=== PATIENT | female | born 1945 | race Caucasian/White ===

== ENCOUNTER 2017-12-31 13:05 | Inpatient (IN) | payer MEDICARE ==
[~2017-12-31] VITALS: Ht 162.6 cm; Wt 77.2 kg
--- NOTE | 2017-12-31 13:45 | NUR ---
PT TAKEN TO FAMILY ROOM WITH & DAUGHTER FOR ISOLATION UNTIL A ROOM IS AVAILABLE FOR TREATMENT. PT IN STABLE CONDITION.
--- NOTE | 2017-12-31 13:50 | NUR ---
PT GIVEN CASS & BELG[place]
--- NOTE | 2017-12-31 14:30 | NUR ---
PT DENIES N/V/D, DRANK SMALL GINGERALE, ATE CRACKERS. WILL CONTINUE TO MONITOR UNTIL A ROOM IS AVAILABLE FOR TREATMTENT.
--- NOTE | 2017-12-31 15:00 | NUR ---
PT TO ROOM 15 VIA WHEELCHAIR WITH FMAILY AT SIDE. PT DENIES ANY PAIN OR SOB AT THIS TIME. LARGE BLISTER LIKE WOUNDS NOTED TO THE BILATERAL UPPER ABDOMEN ACROSS BILATERAL BREASTS AND IN BETWEEN BREASTS. WOUNDS ARE LEAKING A PALE YELLOW FLUID. PT REMOVED PAPER TOWELS FROM AREA. SOME ARE OPEN AND BLEEDING. PER PT THEY ARE WARTS. PT CHANGED INTO GOWN AND IS AWARE OF PROBABLE PLAN OF CARE AND WAIT TIME. CALL MOTA WITHIN REACH. WILL CONTINUE TO MONITOR.
--- NOTE | 2017-12-31 15:38 | NUR ---
IV ESTABLISHED. LABS COULD NOT BE DRAWN FROM IV SITE. PT RECVING IVF. PT REQUEST WE WAIT UNTIL SHE CAN GET SOME NACL IN HER BEFORE WE TRY TO DRAW BLOOD AGAIN. PLEB//RN AWARE.
--- NOTE | 2017-12-31 16:00 | NUR ---
EYES BRIGHT AND PT TALKATIVE WITH FAMILY. PER PT SHE IS FEELING MUCH BETTER AFTER THE FLUIDS WERE STARTED. PT WOULD LIKE TO FINISH THE L OF NCL BEFORE HAVING BLOOD DRAWN. PT MADE AWARE OF NEED TO START ANTIBIOTICS. PT STATED "I DON'T THINK THAT 1 HOUR WILL MAKE IT ANY WORSE, I WILL JUST WAIT". NOTIFIED.
--- NOTE | 2017-12-31 17:00 | NUR ---
PO FLUIDS PROVIDED PER PT REQUEST. PT RESTING COMFORTABLY IN STRETCHER WITH EYES CLOSED. PT AGREED TO HAVE LUBRICATION TECHNICIAN TO DRAWN LABS. PT DENIES ANY NEEDS AT THIS TIME. WILL CONTINUE TO MONITOR.
--- NOTE | 2017-12-31 17:25 | NUR ---
LAB AT BEDSIDE TO COLLECT LABS AND BLOOD CULTURE.
--- NOTE | 2017-12-31 18:00 | NUR ---
EKG LEADS REMOVED PER PT REQUEST DUE TO IRRITATION OF SKIN. PO FLUIDS PROVIDED AND PT TOLERATING WELL. VSS. WILL CONTINUE TO MONITOR.
[2017-12-31 18:02] LABS: ALKALINE PHOSPHATASE 137 u/l (38-126); ANION GAP 13 (6-22 (CALC)); BUN 18 mg/dL (8-23); BUN/CREATININE RATIO 29 (12-20 (CALC)); CARBON DIOXIDE 21 mmol/l (22-30); CHLORIDE 104 mmol/l (95-108); CREATININE 0.6 mg/dL (0.5-1.0); GFR > 60 ML/MIN (>=60 (CALC)); GFR FOR AFR.AMER. > 60 ML/MIN (>=60 (CALC)); POTASSIUM 4.4 mmol/l (3.5-5.1); SGOT/AST 39 u/l (9-36); SGPT/ALT 41 u/l (11-66); SODIUM 133 mmol/l (137-146); TOTAL PROTEIN 6.1 g/dL (6.3-8.2)
[2017-12-31 18:09] LABS: IMMATURE GRANULOCYTES 0.6 % (0.0-1.0); MEAN CELL VOLUME 77.8 fL CALC (80.0-100.0); MEAN CORPUSCULAR HGB 20.2 pG CALC (26.0-32.0); PLATELET COUNT 450 thou/uL (130-400); RED BLOOD COUNT 1.98 mill/uL (4.20-5.60); RED CELL DISTRI WIDTH 18.6 % (11.5-15.5)
--- NOTE | 2017-12-31 18:30 | NUR ---
IV ANTIBIOTICS AND NORMAL SALINE INFUSING. PT DENIES ANY PAIN AT THIS TIME. MD AT BEDSIDE TO DISCUSS RESULTS AND PLAN OF ADMISSION.
[2017-12-31 18:32] LABS: TSH, 3RD GENERATION 1.92 uIU/mL (0.47 - 4.68)
--- NOTE | 2017-12-31 19:00 | NUR ---
REPORT GIVEN TO DENISSE MELO.
[2017-12-31 19:53] LABS: URINE BILIRUBIN - DIPSTICK NEGATIVE (NEGATIVE); URINE BLOOD DIPSTICK NEGATIVE (NEGATIVE); URINE COLOR YELLOW; URINE GLUCOSE - DIPSTICK NEGATIVE (NEGATIVE); URINE KETONE NEGATIVE (NEGATIVE); URINE LEUK ESTERASE NEGATIVE (NEGATIVE); URINE NITRITE - DIPSTICK NEGATIVE (Negative); URINE PH 5.5 (4.5-8.0); URINE PROTEIN - DIPSTICK NEGATIVE (NEG-TRACE); URINE UROBILINOGEN - DIPSTICK 0.2 E.U./dL (0.2)
[2017-12-31 19:55] LABS: URINE CLARITY CLEAR
[2017-12-31 20:06] LABS: HEMATOCRIT 15.4 % (37.0-47.0); MANUAL DIFFERENTIAL YES
[2017-12-31 20:07] LABS: HYPOCHROMIA MARKED; MICROCYTOSIS FEW
--- NOTE | 2017-12-31 20:31 | NUR ---
LAB CALLED WITH HGB 4/HCT 15.4 @ 2002 REPORT CALLED TO NIR @ 2005. PT TO GO TO 273 BUT SHE STATES IT IS NOT CLEAN AND PIECER UP JUST WENT INTO ROOM. DR PATEL NOTIFIED OF H & H RESULTS @ 2007. PT TO GET 2 UNITS OF PRBC'S/LASIX 20 IVP AFTER 1 ST UNIT/REPEAT HGB AFTER 2ND UNIT. 2009 NIR CALLED TO ADVISE ROOM NOW CLEAN. 2022 LASIX ORDER FAXED TO .
--- NOTE | 2017-12-31 20:45 | NUR ---
TO FLOOR WITHOUT INCIDENT
[2017-12-31 21:00] VITALS: BP 149/74
--- NOTE | 2017-12-31 21:00 | NUR ---
PATIENT ADMITTED FROM ER VIA STRETCHER WITH ER STAFF AND FAMILY IN ATTENDANCE. PATIENT MIN ASSIST FROM STRETCHER TO THE BED. PATIENT IS VERY PALE. PATIENT IS AWAKE ALERT AND ORIENTEDX3. O2 VIA NASAL CANNULA IN PLACE. HEP LOCK TO RIGHT WRIST INTACT AND APPEARS HEALTHY AT THIS TIME. 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 CLEANSED WITH SALINE AND PICTURES WERE TAKEN. LEFT EDWARD AT THIS TIME. PATIENT ORIENTED TO ROOM AND SURROUNDINGS. INSTRUCTED ON USE OF NURSE CALL LIGHT SYSTEM AND THE TV REMOTE. SAFETY PRECAUTIONS REINFORCED. OFFERED SANDWICH BUT DECLINES AT THIS TIME. PROVIDED WITH DRINK AND PUDDING. CALL LIGHT IN REACH. WILL CONT TO MONITOR.
[2017-12-31 21:55] VITALS: BP 137/78
[2017-12-31 22:40] VITALS: BP 137/69
[2018-01-01] VITALS (11 sets, daily range): BP systolic 126–144; BP diastolic 49–74
--- NOTE | 2018-01-01 00:45 | NUR ---
SECOND UNIT OF PRBC'S HUNG ORDERED VIA RIGHT WRIST SITE. SITE APPEARS HEALTHY AT THIS TIME. UNIT#[id number] HUNG. PATIENT UP AND DOWN TO THE BEDSIDE COMMODE AFTER TAKING THE LASIX AFTER THE 1ST UNIT. PATIENT RE-EDUCATED REGUARDING POSSIBLE ADVERSE REACTIONS FROM BLOOD TRANSFUSION. VERBALIZES UNDERSTANDING. MONITORING PATIENT AT BEDSIDE PER BLOOD TRANSFUSION PROTOCOL.
--- NOTE | 2018-01-01 03:24 | NUR ---
SECOND UNIT OF PRBC'S FINISHED WITHOUT ANY ADVERSE REACTION. VS TAKEN AND RECORDED. IV SITE TO RIGHT WRIST REMAINS INTACT AND APPEARS HEALTHY. PATIENT WITH SKIN LESIONS TO LEFT BREAST OPEN TO AIR AT THIS TIME-DRAINING SEROUS FLUID-USING TOWEL TO ABSORB THE DRAINAGE AT THIS TIME. WOUND CULTURE OBTAINED AND SENT TO THE LAB. CONT TO VOID CLEAR YELLOW URINE. PATIENT DRINKING BOOST. SAFETY PRECAUTIONS REINFORCED. CALL LIGHT IN REACH. WILL CONT TO MONITOR.
[2018-01-01 06:12] LABS: HEMATOCRIT 19.3 % (37.0-47.0)
--- NOTE | 2018-01-01 06:16 | NUR ---
RECIEVED CALL FROM CIERRA IN LAB WITH CRITICAL LAB RESULTS. HGB-6.0, HCT-19.3. RESULTS CALLED TO DR. PATEL-LEFT MESSAGE ON ANSWERING MACHINE. WILL AWAIT CALL BACK. PATIENT RESTING IN BED AT THIS TIME WITH NBO COMPLAINTS. CALL LIGHT IN REACH. WILL CONT TO MONITOR.
--- NOTE | 2018-01-01 07:27 | NUR ---
REPORT RECEIVED FROM DENISSE LOYOLA. PT SLEEPING. CALL LIGHT WITHIN REACH.
--- NOTE | 2018-01-01 07:31 | NUR ---
PATIENT RESTING IN BED WITH O2 VIA NASAL CANNUA IN PLACE. CONSENT FOR BLOOD OBTAINED. 1ST UNIT OF PRBC'S HUNG ORDERED. PATIENT HAS BEEN EDUCATED REGUARDING POSSIBLE ADVERSE REACTIONS ASSOCIATED WITH BLOOD TRANSFUSIONS. UNIT# [id number] GEORGE-MONITORING PATIENT AT BEDSIDE PER PROTOCOL.
--- NOTE | 2018-01-01 08:35 | NUR ---
PT SITTING UPRIGHT IN BED. NOT WEARING ANY CLOTHING TO UPPER BODY. VARIOUS LESIONS TO LEFT BREAST AND CHEST NOTED. PT REPORTS LESIONS ARE TOO PAINFUL IF COVERED. NO BLEEDING FROM LESIONS NOTED AT THIS TIME. REPORTING OF CONCERNS ENCOURAGED. PLAN OF CARE DISCUSSED. FALL PRECAUTIONS REINFORCED. CALL LIGHT REVIEWED AND IN REACH.
--- NOTE | 2018-01-01 11:04 | NUR ---
1ST UNIT PRBC'S STARTED AT THIS TIME. DR. PATEL AT BEDSIDE, DISCUSSING PLAN OF CARE. NURSING SCHEDULER AT BEDSIDE TO MONITOR PER PROTOCOL.
--- NOTE | 2018-01-01 11:20 | NUR ---
PT TRANSFERED TO CT BY VP TRAINING CE VIA STRETCHER. PRBC'S INFUSING WITHOUT DOFFICULTY. O2 AT 2L VIA NC. PT TOLERATED CT OF CHEST WELL.
--- NOTE | 2018-01-01 13:59 | NUR ---
PRBC UNIT FINISHED. VSS. #20 RFA FREE OF REDNESS, SWELLING AND LEAKING.
--- NOTE | 2018-01-01 14:00 | NUR ---
AWAITING BED ASSIGNMENT FROM [facility] PER DR. PATEL.
--- NOTE | 2018-01-01 15:06 | NUR ---
4TH UNIT PRBC'S STARTED AT THIS TIME. VSS. O2 @ 2L VIA NC. #20 RFA INFUSING WITHOUT DIFFICULTY. PT'S AT BEDSIDE FOR SUPPORT.
--- NOTE | 2018-01-01 16:24 | NUR ---
REPORT GIVEN TO ALPHONSE Mejia RN AT [facility].
--- NOTE | 2018-01-01 16:48 | NUR ---
PT LEFT FLOOR VIA STRETCHER ACCOMPANIED BY [facility].
== END 2018-01-01 18:42 | disposition short-term general hospital (02) | DRG 597 ==
LOC: ED 13:05 → ED-I 16:01 → ED 16:01 → ED-I 18:16 → ED 18:35 → MS2 18:36 → UNDODEPER 01-01 03:04 → MS2 01-01 18:42
PROVIDERS: Emergency Medicine; ADMIT Internal Medicine; ATTEND Internal Medicine
PROC: 30233N1 Transfusion of Nonautologous Red Blood Cells into Peripheral Vein, Percutaneous Approach (ICD-10-PCS; principal; 2017-12-31)
PROC: 30233N1 Transfusion of Nonautologous Red Blood Cells into Peripheral Vein, Percutaneous Approach (ICD-10-PCS; 2018-01-01)
PROC: 30233N1 Transfusion of Nonautologous Red Blood Cells into Peripheral Vein, Percutaneous Approach (ICD-10-PCS; 2018-01-01)
PROC: 30233N1 Transfusion of Nonautologous Red Blood Cells into Peripheral Vein, Percutaneous Approach (ICD-10-PCS; 2018-01-01)
DX: C50.912 Malignant neoplasm of unspecified site of left female breast (principal); J18.9 Pneumonia, unspecified organism; C79.9 Secondary malignant neoplasm of unspecified site; D62 Acute posthemorrhagic anemia; N64.59 Other signs and symptoms in breast; R91.1 Solitary pulmonary nodule; Z91.19 Patient's noncompliance with other medical treatment and regimen
CPT/HCPCS: P9016